=== PATIENT | male | born 1990 | race Caucasian/White ===

== ENCOUNTER 2016-05-25 19:00 | Observation (INO) | payer OTHER ==
[~2016-05-25] VITALS: Ht 170.2 cm; Wt 81.9 kg
[~2016-05-25 19:00] MED LIST: NOHOMEMEDS; Prilosec PO; Protonix PO; ZOFRAN4 MG/2 M1 PO
[2016-05-25 19:52] LABS: HEMATOCRIT 46.9 % (38.0-50.0); MCH 30.2 PG (29.0-34.0); MCHC 34.1 G/DL (30.0-36.0); MCV 88.7 FL (86-99); MEAN PLAT.VOLUME 9.9 uM^3 (9.0-12.4); PLATELET COUNT 244 K/uL (156-360); RBC DIS.WIDTH-CV 12.4 % (11.8-14.6); RBC DIS.WIDTH-SD 40.5 % (39-53); RED BLOOD COUNT 5.29 M/uL (4.00-5.50); WHITE BLOOD COUNT 15.6 K/uL (4.1-10.2)
[2016-05-25 20:16] LABS: CHLORIDE 108 mEq/L (99-109); POTASSIUM 3.4 mEq/L (3.7-5.4); SODIUM 141 mEq/L (136-147)
[2016-05-25 20:18] LABS: GLUCOSE 135 mg/dL (70-99)
[2016-05-25 20:19] LABS: ANION GAP 13 MEQ/L (2-14)
[2016-05-25 20:20] LABS: TOTAL BILIRUBIN 0.8 mg/dL (0.0-1.0)
[2016-05-25 20:21] LABS: ALKALINE PHOSPHATASE 45 IU/L (3-129)
[2016-05-25 20:22] LABS: GFR ESTIMATE (CALCULATED) > 59 mL/min/
[2016-05-25 20:23] LABS: UREA NITROGEN (BUN) 20 mg/dL (9-23)
[2016-05-25 20:25] LABS: LIPASE 20 U/L (1.0-51.0)
[2016-05-25 21:58] LABS: C DIFF TOXIN NEGATIVE (NEGATIVE)
[2016-05-25 21:59] LABS: PROBE CHECK PASS; SPECIMEN PROCESSING CONTROL PASS
[2016-05-26 01:30] VITALS: BP 116/58
[2016-05-26 07:45] VITALS: BP 113/50
[2016-05-26 09:12] LABS: HEMATOCRIT 44.4 % (38.0-50.0); MCH 30.4 PG (29.0-34.0); MCHC 33.3 G/DL (30.0-36.0); MCV 91.2 FL (86-99); MEAN PLAT.VOLUME 9.9 uM^3 (9.0-12.4); PLATELET COUNT 195 K/uL (156-360); RBC DIS.WIDTH-SD 43.4 % (39-53); RED BLOOD COUNT 4.87 M/uL (4.00-5.50)
[2016-05-26 09:21] LABS: WHITE BLOOD COUNT 8.9 K/uL (4.1-10.2)
[2016-05-26 09:33] LABS: ALKALINE PHOSPHATASE 36 IU/L (3-129); ANION GAP 8 MEQ/L (2-14); CHLORIDE 110 MEQ/L (99-109); GFR ESTIMATE (CALCULATED) > 59 mL/min/; POTASSIUM 3.9 MEQ/L (3.7-5.4); SAMPLE HEMOLYSIS CHECK 0; SAMPLE ICTERIC CHECK 0; SAMPLE LIPEMIA CHECK 0; SODIUM 142 MEQ/L (136-147); TOTAL BILIRUBIN 0.5 MG/DL (0.0-1.0); UREA NITROGEN (BUN) 12 mg/dL (9-23)
[2016-05-26 09:58] LABS: GLUCOSE 89 mg/dL (70-99)
[2016-05-26] MEDS ORDERED: ZOFRAN4 MG PO (11:54)
[2016-05-26 12:18] VITALS: BP 111/67
== END 2016-05-26 13:13 | disposition home or self-care (01) ==
LOC: EME → EDBD 19:00 → EME 19:00 → EDOF 05-26 00:14 → 5WEST 05-26 00:14
PROVIDERS: Nurse Practitioner Adult Health; Nurse Practitioner Family
DX: K52.9 Noninfective gastroenteritis and colitis, unspecified (principal); F17.210 Nicotine dependence, cigarettes, uncomplicated
CPT/HCPCS: 80053; 83605; 83630; 83690; 85027; 87177; 87493; 87506; 99281; 99285; G0378; J0500; J1630; J2060; J2405; J3010; J7030

== ENCOUNTER 2017-04-05 07:02 | Observation (INO) | payer OTHER ==
[~2017-04-05] VITALS: Ht 167.6 cm; Wt 71.0 kg
[~2017-04-05 07:02] MED LIST changes: +ZOFRAN4 MG PO
[2017-04-05 07:39] LABS: BASOPHIL (%) 0.3 % (0-1); EOSINOPHIL (%) 0.3 % (0-5); HEMATOCRIT 47.4 % (38.0-50.0); HEMOGLOBIN 16.2 G/DL (12.5-16.6); IMMATURE GRANULOCYTE (%) 0.3 % (0.0-0.7); LYMPHOCYTE (%) 15.1 % (15-42); LYMPHOCYTE COUNT 2.2 K/uL (1.0-2.8); MCH 31.1 PG (29.0-34.0); MCHC 34.2 G/DL (30.0-36.0); MONOCYTE (%) 4.9 % (3-12); MONOCYTE COUNT 0.7 K/uL (0-0.8); NEUTROPHIL (%) 79.1 % (45-76); NEUTROPHIL COUNT 11.5 K/uL (1.8-6.4); PLATELET COUNT 247 K/uL (156-360); RBC DIS.WIDTH-CV 12.7 % (11.8-14.6); RBC DIS.WIDTH-SD 42.3 % (39-53); RED BLOOD COUNT 5.21 M/uL (4.00-5.50); WHITE BLOOD COUNT 14.6 K/uL (4.1-10.2)
[2017-04-05 08:03] LABS: ALBUMIN 4.7 g/dL (3.2-4.8); CHLORIDE 108 mEq/L (99-109); SODIUM 141 mEq/L (136-147)
[2017-04-05 08:05] LABS: GLUCOSE 167 mg/dL (70-99); TOTAL PROTEIN 7.2 g/dL (6.4-8.3)
[2017-04-05 08:07] LABS: TOTAL BILIRUBIN 0.4 mg/dL (0.0-1.0)
[2017-04-05 08:09] LABS: ALKALINE PHOSPHATASE 57 IU/L (3-129); CREATININE 1.1 mg/dL (0.6-1.3); GFR ESTIMATE (CALCULATED) > 59 mL/min/ (58.99-99999)
[2017-04-05 08:10] LABS: UREA NITROGEN (BUN) 21 mg/dL (9-23)
[2017-04-05 08:11] LABS: AST (GOT) 17 IU/L (2-34)
[2017-04-05 08:12] LABS: ALT (GPT) 18 IU/L (3-49); LIPASE 60 U/L (1.0-51.0)
[2017-04-05 10:49] LABS: APPEARANCE SL.HAZY ((CLEAR)); BILIRUBIN NEGATIVE; BLOOD NEGATIVE; COLOR YELLOW ((YELLOW)); GLUCOSE (STRIP) NEGATIVE; KETONES 20; LEUKOCYTES NEGATIVE; NITRITE NEGATIVE; PROTEIN (STRIP) 30; SPECIFIC GRAVITY 1.029 (1.000-1.030); UROBILINOGEN 0.2 MG/DL (0.2-1.0)
[2017-04-05 10:55] LABS: BACTERIA RARE /HPF; EPITHELIAL CELLS RARE /HPF; MUCUS 2+ /LPF; RED BLOOD CELLS 0-5 /HPF (0-5)
[2017-04-05 10:59] LABS: AMPHETAMINE NEGATIVE (500 ng/mL); BARBITURATES NEGATIVE (200 ng/mL); BENZODIAZEPINES NEGATIVE (150 ng/mL); BUPRENORPHINE NEGATIVE (10 ng/mL); COCAINE NEGATIVE (150 ng/mL); METHADONE NEGATIVE (200 ng/mL); METHAMPHETAMINE NEGATIVE (500 ng/mL); OPIATES (MORPHINE) PRESUMPTIVE POSITIVE (100 ng/mL); OXYCODONE NEGATIVE (100 ng/mL); PHENCYCLIDINE NEGATIVE (25 ng/mL); PROPOXYPHENE NEGATIVE (300 ng/mL); THC CANNABINOIDS PRESUMPTIVE POSITIVE (50 ng/mL); TRICYCLIC ANTIDEPRESSANTS NEGATIVE (300 ng/mL)
[2017-04-05 12:57] VITALS: BP 130/60
[2017-04-05 15:32] VITALS: BP 139/60
[2017-04-05 20:00] VITALS: BP 109/53
[2017-04-06 00:20] VITALS: BP 98/53
[2017-04-06 05:56] LABS: CHLORIDE 110 MEQ/L (99-109); CREATININE 0.9 MG/DL (0.6-1.3); GFR ESTIMATE (CALCULATED) > 59 mL/min/ (58.99-99999); POTASSIUM 3.8 MEQ/L (3.7-5.4); SODIUM 145 MEQ/L (136-147); UREA NITROGEN (BUN) 14 mg/dL (9-23)
[2017-04-06 06:03] LABS: GLUCOSE 103 mg/dL (70-99)
[2017-04-06 07:35] VITALS: BP 118/62
[2017-04-06 08:57] LABS: BASOPHIL (%) 0.2 % (0-1); EOSINOPHIL (%) 0.1 % (0-5); HEMATOCRIT 43.3 % (38.0-50.0); HEMOGLOBIN 14.3 G/DL (12.5-16.6); IMMATURE GRANULOCYTE (%) 0.3 % (0.0-0.7); LYMPHOCYTE (%) 19.3 % (15-42); LYMPHOCYTE COUNT 2.5 K/uL (1.0-2.8); MCH 30.4 PG (29.0-34.0); MCV 92.1 FL (86-99); MONOCYTE (%) 7.7 % (3-12); NEUTROPHIL (%) 72.4 % (45-76); NEUTROPHIL COUNT 9.2 K/uL (1.8-6.4); PLATELET COUNT 222 K/uL (156-360); RBC DIS.WIDTH-CV 13.2 % (11.8-14.6); WHITE BLOOD COUNT 12.7 K/uL (4.1-10.2)
[2017-04-06] MEDS ORDERED: REGLAN5 MG PO (11:45)
[2017-04-06 11:49] VITALS: BP 134/82
== END 2017-04-06 12:52 | disposition home or self-care (01) ==
LOC: EME 07:02 → 5WEST 11:22 → EDOF 11:22 → ENRESERV 11:23 → 5WEST 12:45 → ENPENDDIS 04-06 → 5WEST 04-06 12:52
PROVIDERS: Emergency Medicine; Internal Medicine
DX: K52.9 Noninfective gastroenteritis and colitis, unspecified (principal); R10.31 Right lower quadrant pain; F17.210 Nicotine dependence, cigarettes, uncomplicated; F12.90 Cannabis use, unspecified, uncomplicated; Z87.442 Personal history of urinary calculi
CPT/HCPCS: 74176; 80048; 80053; 81003; 83690; 84999; 85025; 99281; 99285; G0378; J1885; J2270; J2405; J2765; J7030